=== PATIENT | male | born 1970 | race African-American/Black ===

== ENCOUNTER 2021-09-20 20:04 | Emergency (ER) | payer SELFPAY ==
[2021-09-20] MEDS ORDERED: Lidocaine 1% 20 ML MDV ONE (20:56)
[2021-09-20] MEDS ORDERED: Bacitracin 1 PK ONE (21:33)
== END 2021-09-20 21:40 | disposition home or self-care (01) ==
LOC: NAV ERS 20:04
DX: S81.012A Laceration without foreign body, left knee, initial encounter (principal); F17.210 Nicotine dependence, cigarettes, uncomplicated; X58.XXXA Exposure to other specified factors, initial encounter
CPT/HCPCS: 12001